=== PATIENT | male | born 1980 | race American Indian/Alaskan Native ===

== ENCOUNTER 2019-05-20 03:27 | Emergency (ER) | payer MEDICAID ==
[2019-05-20] MEDS ORDERED: Ketorolac 60 MG/2 ML SDV IM ONE (03:54)
[2019-05-20] MEDS ORDERED: Acetaminophen/oxyCODONE 325-5 MG Tab PO ONE (03:55)
--- NOTE | 2019-05-20 04:03 | EDM.PDOC ---
ED HPI GENERAL MEDICAL PROBLEM - General Chief Complaint: Skin Complaint Stated Complaint: SKIN RASH Time Seen by Provider: 05/20/19 03:50 Source of Information: Reports: Patient, Old Records, RN History Limitations: Reports: No Limitations - History of Present Illness INITIAL COMMENTS - FREE TEXT/NARRATIVE: 39 yo NA male presents with R sided chest pain that began about 2 hrs ago not associated with any injury. Says it reminds him of shingles he's had in the past. Took nothing for the pain before coming to the ER. Pain not worse with touching area or with deep breathing. Onset: Today, Sudden Onset Date: 05/20/19 Onset Time: 02:00 Duration: Hour(s): (2), Constant Location: Reports: Chest (Right sided) Quality: Reports: Pressure Severity: Severe Improves with: Reports: None Worsens with: Reports: None Context: Reports: Other (unknown) Associated Symptoms: Reports: No Other Symptoms. Denies: Cough, Fever/Chills, Nausea/Vomiting, Rash, Shortness of Breath Treatments GEOLOGICAL AIDE: Reports: Other (see below) (none) right torso Pain Score (Numeric/FACES): 9 - Related Data Allergies Allergy/AdvReac Type Severity Reaction Status Date / Time No Known Allergies Allergy Verified 05/20/19 03:47 Home Meds: Home Meds Ibuprofen [Ibu] 600 mg PO QID PRN #20 tablet 05/20/19 [Rx] valACYclovir HCl [Valacyclovir] 1,000 mg PO Q8H #20 tablet 05/20/19 [Rx] Past Medical History Genitourinary History: Reports: Renal Calculus - Infectious Disease History Infectious Disease History: Reports: Chicken Pox, Shingles Social & Family History - Tobacco Use Smoking Status *Q: Current Every Day Smoker Years of Tobacco use: 23 Packs/Tins Daily: 1 - Caffeine Use Caffeine Use: Reports: Soda - Recreational Drug Use Recreational Drug Use: Yes Recreational Drug Type: Reports: Marijuana/Hashish ED ROS GENERAL - Review of Systems Review Of Systems: See Below Constitutional: Reports: No Symptoms HEENT: Reports: No Symptoms Respiratory: Reports: No Symptoms Cardiovascular: Reports: Chest Pain Endocrine: Reports: No Symptoms GI/Abdominal: Reports: No Symptoms : Reports: No Symptoms Musculoskeletal: Reports: No Symptoms Skin: Reports: No Symptoms Neurological: Reports: No Symptoms Psychiatric: Reports: No Symptoms ED EXAM, SKIN/RASH Exam: See Below Exam Limited By: No Limitations General Appearance: Alert, WD/WN, Mild Distress Eye Exam: Bilateral Eye: Normal Inspection Ears: Normal External Exam, Normal Canal, Hearing Grossly Normal Nose: Normal Inspection, No Blood Throat/Mouth: Normal Inspection, Normal Lips, Normal Oropharynx, Normal Voice, No Airway Compromise Head: Atraumatic, Normocephalic Neck: Normal Inspection Respiratory/Chest: No Respiratory Distress, Lungs Clear, Normal Breath Sounds, No Accessory Muscle Use, Chest Non-Tender Cardiovascular: Regular Rate, Rhythm, No Edema Back Exam: Normal Inspection. No: CVA Tenderness (R), CVA Tenderness (L) Extremities: Normal Inspection, Normal Range of Motion, Non-Tender, No Pedal Edema Neurological: Alert, Oriented, CN II-XII Intact, Normal Cognition, No Motor/ Sensory Deficits Psychiatric: Normal Affect, Normal Mood Skin: Warm, Dry, Intact, Normal Color, No Rash Lymphatic: No Adenopathy EKG INTERPRETATION EKG Date: 05/20/19 Time: 04:00 Rhythm: NSR Rate (Beats/Min): 79 [place]ilo: Normal P-Wave: Present QRS: Normal ST-T: Normal QT: Normal Comparison: NA - No Prior EKG (No def'n acute pathology.) Course - Vital Signs Last Recorded V/S: Last Vital Signs Temp 36.8 C 05/20/19 03:50 Pulse 90 05/20/19 04:06 Resp 21 H 05/20/19 04:06 BP 135/97 H 05/20/19 04:06 Pulse Ox 98 05/20/19 03:50 - Orders/Labs/Meds Orders: Active Orders 24 hr Category Date Time Status EKG Documentation Completion [RC] ASDIRECTED Care 05/20/19 03:57 Active Chest 2V [CR] Stat Exams 05/20/19 03:54 Ordered EKG 12 Lead [EK] Routine Ther 05/20/19 03:57 Ordered Meds: Medications Discontinued Medications Generic Name Dose Route Start Last Admin Trade Name Freq PRN Reason Stop Dose Admin Ketorolac Tromethamine 60 mg 05/20/19 03:54 05/20/19 04:02 Toradol IM 05/20/19 03:55 60 mg ONETIME ONE Administration Oxycodone/Acetaminophen 1 tab 05/20/19 03:55 05/20/19 04:02 Percocet 325-5 Mg PO 05/20/19 03:56 1 tab ONETIME ONE Administration - Radiology Interpretation Free Text/Narrative:: CXR- Departure - Departure Time of Disposition: 04:35 Disposition: Home, Self-Care 01 Condition: Fair Clinical Impression: Right-sided chest pain - Discharge Information *PRESCRIPTION DRUG MONITORING PROGRAM REVIEWED*: No *COPY OF PRESCRIPTION DRUG MONITORING REPORT IN PATIENT MARY CARMEN: No Instructions: Nonspecific Chest Pain, [id number] Referrals: PCP,None [Primary Care Provider] - Forms: ED Department Discharge Additional Instructions: Take ibuprofen starting after 10 am today for pain relief as needed. Add [place] for added pain relief as needed. If a shingles rash develops, then get the Valacyclovir prescription filled and take it as directed. Call and schedule an appt to be seen in the clinic for ER follow up. - My Orders Last 24 Hours: My Active Orders 05/20/19 03:54 Chest 2V [CR] Stat 05/20/19 03:57 EKG Documentation Completion [RC] ASDIRECTED EKG 12 Lead [EK] Routine - Assessment/Plan Last 24 Hours: My Active Orders 05/20/19 03:54 Chest 2V [CR] Stat 05/20/19 03:57 EKG Documentation Completion [RC] ASDIRECTED EKG 12 Lead [EK] Routine
--- NOTE | 2019-05-20 04:36 | CRLCR ---
Indication: Right-sided chest pain. Technique: Chest 2 views Comparison: None Findings: Cardiovascular and mediastinum: Heart size and vasculature are normal in caliber and appearance. Lungs and pleural spaces: Lungs are clear. No sign of infiltrate or mass. No sign of pleural effusion. No pneumothorax. Bones and soft tissues: No significant findings. Impression: Unremarkable two view chest. Dictated by Pravin Galeana MD @ May 20 2019 4:33AM Signed by Dr. Pravin Galeana @ May 20 2019 4:34AM
== END 2019-05-20 04:44 | disposition home or self-care (01) ==
LOC: JP.ED 03:27
DX: R07.9 Chest pain, unspecified (principal); F17.210 Nicotine dependence, cigarettes, uncomplicated
CPT/HCPCS: 71046; 93005; 96372; 99285; A9270; J1885; 93010